=== PATIENT | male | born 1965 | race Two or more races ===

== ENCOUNTER 2024-12-22 11:49 | Emergency (ER) | payer SELFPAY ==
--- NOTE | ~2024-12-22 | CT_ITS ---
CLINICAL HISTORY: r flank pain CT abdomen and pelvis without contrast Comparison: None provided Findings: Motion and streak artifact limit evaluation. Diffuse esophageal mural thickening, nonspecific. Cardiomegaly without significant pericardial effusion. Coronary artery calcifications. Hepatomegaly with steatosis. Nonobstructive 3 mm calculus right lower pole kidney. No bowel obstruction, pneumoperitoneum, or pneumatosis. Fat containing umbilical hernia. Fat containing inguinal hernias. Prostatomegaly noted. Scattered colonic diverticulosis without diverticulitis or colitis. Normal appendix. Circumferential bladder wall thickening. No acute fracture. Focal spondylosis L5-S1. Diffuse atheromatous plaque disease throughout the aorta and branch vessels, without aneurysmal dilatation. IMPRESSION: 1. Nonobstructive 3 mm calculus right lower pole kidney. 2. Circumferential bladder wall thickening may be related to degree of underdistention or mild cystitis. This document has been electronically signed by: Benton Gavin MD on 12/22/2024 19:18:11
[2024-12-22 12:20] VITALS: BP 193/91; PULSE 89; RESP 16; TEMP 36.6; O2SAT 94; BMI 35.8
--- NOTE | 2024-12-22 12:23 | ED.GENADULT ---
HPI - General Adult General Chief complaint: Urogenital-Male Stated complaint: penile infection? Time Seen by Provider: 12/22/24 16:02 Related Data Previous Rx's ?Medication ?Instructions ?Recorded amoxicillin 875 mg-potassium 1 tab PO BID #14 tabs 12/22/24 clavulanate 125 mg tablet clotrimazole 1 % topical cream 1 appl topical BID 10 days #15 12/22/24 grams Allergies Allergy/AdvReac Type Severity Reaction Status Date / Time No Known Allergies Allergy Verified 12/22/24 12:26 [facility] Social History Social History Smoked in Last 30 Days: No Use of substances other than those prescribed or required for medical reasons: No Advance Directives: No Advance Directives Information Provided: Yes Do you have a plan to hurt others: No Plan Physical Exam ED Vital Signs: Vital Signs - 24 hr 12/22/24 12:20 12/22/24 18:58 12/22/24 20:28 Temperature 97.8 F 97.8 F 97.9 F Pulse Rate 89 89 73 Respiratory Rate 16 16 20 Blood Pressure 193/91 H 193/91 H 188/112 H Pulse Oximetry 94 94 98 Oxygen Delivery Method Room Air Room Air Room Air 12/22/24 22:47 Temperature 97.7 F Pulse Rate 61 Respiratory Rate 14 Blood Pressure 169/88 H Pulse Oximetry 98 Oxygen Delivery Method Room Air BMI result Body Mass Index 35.8 Course Course Course Narrative: Rapid medical examination performed in triage by Ivon Mccallum PA-C. Patient is a 59 year old assigned male at presenting to the emergency department with penile and scrotal swelling and pain. Patient states that the inside of his penis and scrotum feel swollen. Detailed physical exam and review of systems are deferred to the truck striker. Labs ordered. Patient placed back in the waiting room pending room availability and results. Medications Administered Discontinued Medications Generic Name Dose Route Start Last Admin Trade Name Freq PRN Reason Stop Dose Admin Amlodipine Besylate 10 mg 12/22/24 21:39 12/22/24 21:55 Amlodipine Besylate 10 Mg Tablet PO 12/22/24 21:40 10 mg ONCE ONE Administration Protocol Medical Decision Making Lab Data 12/22/24 12:46 12/22/24 12:46 Labs: Lab Results 12/22/24 12/22/24 Range/Units 12:46 19:28 WBC 7.1 (4.8-10.8) X10*3/uL RBC 5.25 (4.60-5.80) X10*6/uL Hgb 15.7 (14.0-18.0) g/dl Hct 46.1 (42.0-52.0) % MCV 87.8 (80.0-98.0) fL MCH 29.9 (27.0-33.0) pg MCHC 34.1 (31.0-36.0) g/dl RDW 12.8 (11.0-16.0) % Plt Count 266 (160-400) X10*3/uL MPV 9.9 (9.4-12.4) fL Immature Gran % (Auto) 0.1 (0.0-0.4) % Neut % (Auto) 63.3 (45-73) % Lymph % (Auto) 28.6 (20-40) % [place] % (Auto) 6.2 (2-11) % Eos % (Auto) 1.1 (0-4) % Baso % (Auto) 0.7 (0-2) % Lymph # (Auto) 2.0 (1.2-4.9) X10*3/uL [place] # (Auto) 0.4 (0.1-1.2) X10*3/uL Eos # (Auto) 0.1 (0.0-0.4) X10*3/uL Baso # (Auto) 0.1 (0.0-0.2) X10*3/uL Abs Immat Gran (auto) 0.01 (0.00-0.03) X10*3/uL Absolute Neuts (auto) 4.5 (2.0-8.3) x10*3/uL Absolute Nucleated RBC 0.000 (0.0-0.012) X10*3/uL Nucleated RBC % (auto) 0.0 (0.0-0.2) /100WBC Sodium 141 (135-145) mmol/L Potassium 4.0 (3.3-5.1) mmol/L Chloride 108 (96-108) mmol/L Carbon Dioxide 24 (22-29) mmol/L Anion Gap 13 (12-20) BUN 11 (9-16) mg/dL Creatinine 0.92 (0.5-1.4) mg/dL Estim Creat Clear Calc 91.7 Estimated GFR > 60 Random Glucose 133 H (60-115) mg/dL Calcium 8.9 (8.4-10.2) mg/dL Total Bilirubin 0.4 (0.0-1.0) mg/dL AST 23 (5-37) U/L ALT 31 (0-40) U/L Alkaline Phosphatase 69 (39-117) U/L Total Protein 7.2 (6.5-8.0) g/dL Albumin 4.4 (3.5-5.0) g/dL Urine Color Yellow Urine Appearance Clear Urine pH 5.5 (5.0-9.0) Ur Specific [place] 1.015 (1.005-1.025) Urine Protein Negative (Neg-Trace) mg/dL Urine Glucose (UA) Negative (Negative) mg/dL Urine Ketones Negative (Negative) mg/dL Urine Blood Trace H (Negative) Urine Nitrite Negative (Negative) Ur Leukocyte Esterase Negative (Negative) Urine RBC 0-2 (0-2) /HPF Urine WBC 0-5 (0-5) /HPF Ur Squamous Epith Cells 0-2 (0-2) /HPF Urine Bacteria None Seen (None Seen) Hyaline Casts 0-2 (0-2) /LPF Ur N gonorrhoeae DNA (PCR) NOT DETECTED (Not Detect.) Ur Chlamydia DNA (PCR) NOT DETECTED (Not Detect.) Discharge Plan Discharge Clinical Impression: Balanitis, Cellulitis, Hypertension Patient Disposition: Home, Self-Care Instructions: Cellulitis (ED), Balanitis (ED), Hypertension (ED) Prescriptions: New clotrimazole 1 % cream 1 appl topical BID 10 Days Qty: 15 0RF amoxicillin-pot clavulanate 875-125 mg tablet 1 tab PO BID Qty: 14 0RF Referrals: Kaushal Cleary MD [Physician, Urology] Center,[facility] [Physician, Medical] Referral Note: Need blood pressure recheck in 2 days. Print Language: [place]
[2024-12-22 12:50] LABS: MANUAL DIFF FLAG NO
[2024-12-22 12:53] LABS: Hematocrit 46.1 % (42.0-52.0); Hemoglobin 15.7 g/dl (14.0-18.0); Imm Gran Abs Auto 0.01 X10*3/uL (0.00-0.03); Imm Gran Pct Auto 0.1 % (0.0-0.4); Lymphocytes Absolute Auto 2.0 X10*3/uL (1.2-4.9); Mean Corpuscular HGB Conc 34.1 g/dl (31.0-36.0); Mean Corpuscular Hemoglobin 29.9 pg (27.0-33.0); Mean Corpuscular Volume 87.8 fL (80.0-98.0); NRBC Abs Auto 0.000 X10*3/uL (0.0-0.012); NRBC Pct Auto 0.0 /100WBC (0.0-0.2); Platelet Count 266 X10*3/uL (160-400); Red Blood Count 5.25 X10*6/uL (4.60-5.80); White Blood Count 7.1 X10*3/uL (4.8-10.8)
[2024-12-22 13:04] LABS: Alanine Aminotransferase 31 U/L (0-40); Albumin Level 4.4 g/dL (3.5-5.0); Alkaline Phosphatase 69 U/L (39-117); Anion Gap 13 (12-20); Aspartate Amino Transferase 23 U/L (5-37); Blood Urea Nitrogen 11 mg/dL (9-16); Calcium 8.9 mg/dL (8.4-10.2); Carbon Dioxide 24 mmol/L (22-29); Chloride 108 mmol/L (96-108); Creatinine Clr Calc Pharmacy 91.7; Estimated Glomerular Filt Rate > 60; Potassium 4.0 mmol/L (3.3-5.1); Sodium 141 mmol/L (135-145); Total Protein 7.2 g/dL (6.5-8.0)
--- NOTE | 2024-12-22 16:47 | ED.MALEGU ---
HPI - Male Genitourinary General Chief complaint: Urogenital-Male Stated complaint: penile infection? Time Seen by Provider: 12/22/24 16:02 History of Present Illness HPI Narrative: Patient is a 59-year-old male presented today having dysuria that is been ongoing for 3 weeks. Patient claims the head of his penis to be somewhat irritated. Also his foreskin to be irritated. Patient from home. No history of diabetes. No fever no chills. No nausea vomiting. Positive pain to the right flank area has a history of kidney stone in the past. No diaphoresis. No testicular pain. No history of diabetes. Patient is not sexually active. No penile discharge. Does have a whitish discharge around the head of his penis some swelling in the foreskin per patient. Related Data Previous Rx's ?Medication ?Instructions ?Recorded amoxicillin 875 mg-potassium 1 tab PO BID #14 tabs 12/22/24 clavulanate 125 mg tablet clotrimazole 1 % topical cream 1 appl topical BID 10 days #15 12/22/24 grams Allergies Allergy/AdvReac Type Severity Reaction Status Date / Time No Known Allergies Allergy Verified 12/22/24 12:26 Review of Systems Review of Systems: No coughing or congestion or upper respiratory symptoms no diaphoresis Yes all other systems are reviewed and are negative PMFSH Past Medical History Attestation statement: The following information was validated with the patient. Social History Social History Smoked in Last 30 Days: No Use of substances other than those prescribed or required for medical reasons: No Advance Directives: No Advance Directives Information Provided: Yes Do you have a plan to hurt others: No Plan Physical Exam Exam: Exam: Appearance: Alert. Oriented X3. No acute distress. Eyes: Pupils equal, round and reactive to light. ENT: Pharynx normal. Neck: Normal inspection. Neck supple. No lymph nodes noted. No crepitus CVS: Normal heart rate and rhythm. Pulses normal. Normal S1 and S2 Respiratory: No respiratory distress. Breath sounds normal. No Wheezing. No rales Abdomen: Soft and nontender. No rigidity. No distention. good BS x4 Skin: Skin warm and dry. Normal skin color. Normal skin turgor. Extremities: No lower extremity edema. Neurovascular intact to all extremities. No Lacerations. No Rash Neuro: Oriented X 3. No motor deficit. No sensory deficit. Moving all extermities. No slurred speech Vital Signs: Vital Signs: Last Vital Signs Temp 97.7 F 12/22/24 22:47 Pulse 61 12/22/24 22:47 Resp 14 12/22/24 22:47 BP 169/88 H 12/22/24 22:47 Pulse Ox 98 12/22/24 22:47 O2 Del Method Room Air 12/22/24 22:47 BMI result Body Mass Index 35.8 Medications Administered Discontinued Medications Generic Name Dose Route Start Last Admin Trade Name Freq PRN Reason Stop Dose Admin Amlodipine Besylate 10 mg 12/22/24 21:39 12/22/24 21:55 Amlodipine Besylate 10 Mg Tablet PO 12/22/24 21:40 10 mg ONCE ONE Administration Protocol Medical Decision Making Medical Decision Making [facility] Narrative: Patient's CT scan showed no obstruction no abscess no perforation no bladder distention patient was able to urinate well no difficulties. Postvoid was minimal. Patient in no distress. Urine showed no signs of infection. White count is normal. Kidney function is normal patient's glucose was 133 question if patient is starting to have diabetes patient's head of the penis appear red and had some whitish discharge consistent with balanitis. Will start patient on Augmentin for foreskin infection as there was some redness will start patient on antifungal for the balanitis will ask patient to air dry as much as possible follow-up with urology on an outpatient basis. In addition patient's blood pressure was extremely elevated we did give patient a dose of his blood pressure medicine we encouraged him to take his meds and follow-up with his primary physician will recheck of his blood pressure in 24-48 hours explained to patient through an bale tie machine operator that the blood pressure extreme and needs to be taken care of. Currently in stable condition with discharge home. Of no patient's GC chlamydia were negative Differential Diagnosis Differential Diagnoses: The differential diagnosis associated with the presentation includes Hypertension, UTI, urinary retention, balanitis, gonorrhea chlamydia Admission/Observation Consideration of admission/observation: Escalation of care including admission/observation considered Lab Data [facility] Lab Attestation statement: I reviewed the patient's lab results. 12/22/24 12:46 12/22/24 12:46 Labs: Lab Results 12/22/24 12/22/24 Range/Units 12:46 19:28 WBC 7.1 (4.8-10.8) X10*3/uL RBC 5.25 (4.60-5.80) X10*6/uL Hgb 15.7 (14.0-18.0) g/dl Hct 46.1 (42.0-52.0) % MCV 87.8 (80.0-98.0) fL MCH 29.9 (27.0-33.0) pg MCHC 34.1 (31.0-36.0) g/dl RDW 12.8 (11.0-16.0) % Plt Count 266 (160-400) X10*3/uL MPV 9.9 (9.4-12.4) fL Immature Gran % (Auto) 0.1 (0.0-0.4) % Neut % (Auto) 63.3 (45-73) % Lymph % (Auto) 28.6 (20-40) % [place] % (Auto) 6.2 (2-11) % Eos % (Auto) 1.1 (0-4) % Baso % (Auto) 0.7 (0-2) % Lymph # (Auto) 2.0 (1.2-4.9) X10*3/uL [place] # (Auto) 0.4 (0.1-1.2) X10*3/uL Eos # (Auto) 0.1 (0.0-0.4) X10*3/uL Baso # (Auto) 0.1 (0.0-0.2) X10*3/uL Abs Immat Gran (auto) 0.01 (0.00-0.03) X10*3/uL Absolute Neuts (auto) 4.5 (2.0-8.3) x10*3/uL Absolute Nucleated RBC 0.000 (0.0-0.012) X10*3/uL Nucleated RBC % (auto) 0.0 (0.0-0.2) /100WBC Sodium 141 (135-145) mmol/L Potassium 4.0 (3.3-5.1) mmol/L Chloride 108 (96-108) mmol/L Carbon Dioxide 24 (22-29) mmol/L Anion Gap 13 (12-20) BUN 11 (9-16) mg/dL Creatinine 0.92 (0.5-1.4) mg/dL Estim Creat Clear Calc 91.7 Estimated GFR > 60 Random Glucose 133 H (60-115) mg/dL Calcium 8.9 (8.4-10.2) mg/dL Total Bilirubin 0.4 (0.0-1.0) mg/dL AST 23 (5-37) U/L ALT 31 (0-40) U/L Alkaline Phosphatase 69 (39-117) U/L Total Protein 7.2 (6.5-8.0) g/dL Albumin 4.4 (3.5-5.0) g/dL Urine Color Yellow Urine Appearance Clear Urine pH 5.5 (5.0-9.0) Ur Specific [place] 1.015 (1.005-1.025) Urine Protein Negative (Neg-Trace) mg/dL Urine Glucose (UA) Negative (Negative) mg/dL Urine Ketones Negative (Negative) mg/dL Urine Blood Trace H (Negative) Urine Nitrite Negative (Negative) Ur Leukocyte Esterase Negative (Negative) Urine RBC 0-2 (0-2) /HPF Urine WBC 0-5 (0-5) /HPF Ur Squamous Epith Cells 0-2 (0-2) /HPF Urine Bacteria None Seen (None Seen) Hyaline Casts 0-2 (0-2) /LPF Ur N gonorrhoeae DNA (PCR) NOT DETECTED (Not Detect.) Ur Chlamydia DNA (PCR) NOT DETECTED (Not Detect.) Independent Interpretation I performed an independent interpretation of an: CT Scan (No obstruction no abscess no perforation) Radiology Impression Discussion of test interpretation with radiology: I have reviewed the radiologist's reading. External Record Review External record reviewed: Office record Social Determinants Patient?s care significantly limited by Social Determinants of Health including: Problems related to primary support group Discharge Plan Discharge Clinical Impression: Balanitis, Cellulitis, Hypertension Patient Disposition: Home, Self-Care Instructions: Cellulitis (ED), Balanitis (ED), Hypertension (ED) Prescriptions: New clotrimazole 1 % cream 1 appl topical BID 10 Days Qty: 15 0RF amoxicillin-pot clavulanate 875-125 mg tablet 1 tab PO BID Qty: 14 0RF Referrals: Kaushal Cleary MD [Physician, Urology] [facility] [Physician, Medical] Referral Note: Need blood pressure recheck in 2 days. Print Language: Japanese
[2024-12-22 18:58] VITALS: BP 193/91; PULSE 89; RESP 16; TEMP 36.6; O2SAT 94
[2024-12-22 19:39] LABS: Appearance Urine Clear; Glucose Urine UA Negative (Negative); PH 5.5 (5.0-9.0); Specific Gravity - Urine 1.015 (1.005-1.025); UMIC TRIGGER UACC YES
[2024-12-22 20:28] VITALS: BP 188/112; PULSE 73; RESP 20; TEMP 36.6; O2SAT 98
[2024-12-22 22:00] LABS: CT PCR Urine NOT DETECTED (Not Detect.); NG PCR Urine NOT DETECTED (Not Detect.)
[2024-12-22 22:47] VITALS: BP 169/88; PULSE 61; RESP 14; TEMP 36.5; O2SAT 98
[2024-12-22 23:16] VITALS: BP 169/88; PULSE 61; RESP 14; TEMP 36.5; O2SAT 98
== END 2024-12-22 23:17 | disposition home or self-care (01) ==
PROVIDERS: Physician Assistant Medical; Emergency Provider Emergency Medicine Emergency Medical Services
DX: N49.2 Inflammatory disorders of scrotum (principal); I10 Essential (primary) hypertension; N50.82 Scrotal pain; N48.89 Other specified disorders of penis
CPT/HCPCS: 36415; 51798; 74176; 80053; 81001; 85025; 87491; 87591; 99284; 99285

== ENCOUNTER → 2024-12-22 16:40 | Outpatient (BNV) | payer SELFPAY | PROVIDERS: Emergency Provider Emergency Medicine Emergency Medical Services; Visit Provider Radiology Diagnostic Radiology | DX: N20.0 Calculus of kidney (principal) | CPT/HCPCS: 74176 ==